=== PATIENT | male | born 1995 | race Caucasian/White ===

== ENCOUNTER 2018-09-05 14:19 | Emergency (ER) | payer SELFPAY ==
[2018-09-05] MEDS ORDERED: predniSONE 20 MG TAB ONE (15:19)
--- NOTE | 2018-09-05 15:22 | RAD REPORT ---
EXAM DESCRIPTION: CT - Head Brain Wo Cont - 09/05/2018 3:16 pm CLINICAL HISTORY: Right-sided facial droop, numbness COMPARISON: None. TECHNIQUE: Axial 5 mm thick images of the head were obtained without IV contrast. All CT scans are performed using dose optimization technique as appropriate and may include automated exposure control or mA/KV adjustment according to patient size. FINDINGS: No intracranial hemorrhage, mass, edema or shift of mid-line structures. No acute infarcti on changes seen. No abnormal extra-axial fluid collections. Ventricles are normal. Patient has normal variant moderate-sized partially calcified choroid plexus cysts. Mastoid air cells and visualized portions of the paranasal sinuses are clear. No acute bony findings. IMPRESSION: Negative CT head examination for acute or significant finding.
--- NOTE | 2018-09-05 15:29 | EDPHYS ---
Physician Documentation [facility] Name: Kostas Collins Age: 23 yrs Sex: Male : 1995 Arrival Date: 09/05/2018 Time: 14:21 Bed 10 Private MD: None, None ED Physician Nii Schmid HPI: 09/05 15:09 This 23 yrs old Male presents to ER via Ambulatory with complaints of Facial jr8 Droop, Facial Numbness. 15:09 Onset: The symptoms/episode began/occurred acutely, 5 day(s) ago. Context: occurred at [facility] home. Associated signs and symptoms: Pertinent positives: paresthesias. Severity of symptoms: At their worst the symptoms were moderate in the emergency department the symptoms are unchanged. Patient's baseline: Neuro: alert and fully oriented, Motor: no deficits, Ambulation: walks without assistance, Speech: normal. Current symptoms: paralysis or paresis, that is moderate. The patient has not experienced similar symptoms in the past. The patient has not recently seen a physician. 15:09 Patient stated that he noticed numbness of tongue and taste difference on right side jr8 about 5 days ago. A couple of days after that noticed facial droop. Came today after it had not gone away . Historical: - Allergies: 14:32 No Known Allergies; ss - Home Meds: 14:32 None [Active]; ss - PMHx: 14:32 None; ss - PSHx: 14:32 None; ss - Immunization history:: Adult Immunizations unknown. - Social history:: Smoking status: Patient uses tobacco products, smokes one pack cigarettes per day. - Ebola Screening: : Patient denies exposure to infectious person Patient denies travel to an Ebola-affected area in the 21 days before illness onset. ROS: 15:09 Eyes: Negative for injury, pain, redness, and discharge, ENT: Negative for injury, jr8 pain, and discharge, Neck: Negative for injury, pain, and swelling, Cardiovascular: Negative for chest pain, palpitations, and edema, Respiratory: Negative for shortness of breath, cough, wheezing, and pleuritic chest pain, Abdomen/GI: Negative for abdominal pain, nausea, vomiting, diarrhea, and constipation, Back: Negative for injury and pain, MS/Extremity: Negative for injury and deformity, Skin: Negative for injury, rash, and discoloration. 15:09 Neuro: Positive for numbness, weakness, of the right face. Exam: 15:09 Head/Face: Normocephalic, atraumatic. Eyes: Pupils equal round and reactive to light, jr8 extra-ocular motions intact. Lids and lashes normal. Conjunctiva and sclera are non-icteric and not injected. Cornea within normal limits. Periorbital areas with no swelling, redness, or edema. ENT: Nares patent. No nasal discharge, no septal abnormalities noted. Tympanic membranes are normal and external auditory canals are clear. Oropharynx with no redness, swelling, or masses, exudates, or evidence of obstruction, uvula midline. Mucous membranes moist. Neck: Trachea midline, no thyromegaly or masses palpated, and no cervical lymphadenopathy. Supple, full range of motion without nuchal rigidity, or vertebral point tenderness. No Meningismus. Cardiovascular: Regular rate and rhythm with a normal S1 and S2. No gallops, murmurs, or rubs. Normal PMI, no JVD. No pulse deficits. Respiratory: Lungs have equal breath sounds bilaterally, clear to auscultation and percussion. No rales, rhonchi or wheezes noted. No increased work of breathing, no retractions or nasal flaring. Abdomen/GI: Soft, non-tender, with normal bowel sounds. No distension or tympany. No guarding or rebound. No evidence of tenderness throughout. Back: No spinal tenderness. No costovertebral tenderness. Full range of motion. Skin: Warm, dry with normal turgor. Normal color with no rashes, no lesions, and no evidence of cellulitis. MS/ Extremity: Pulses equal, no cyanosis. Neurovascular intact. Full, normal range of motion. 15:09 Neuro: Orientation: to person, place, time \T\ situation. Mentation: is normal, Memory: is normal, immediate memory is intact, recent memory is intact, remote memory is intact, Cranial nerves: CN I not tested, CN II- XII are normal as tested, visual marshall are intact. extraocular movements are intact, facial droop noted on right, with forehead involved. decreased ocular muscle tone in the right eye, Nystagmus is absent. Speech is clear and appropriate. Tongue strength is normal, Cerebellar function: normal finger to nose testing, heel to rowe testing is normal, Motor: moves all fours, strength is 5/5 in all extremities, Sensation: no obvious gross deficits, Gait: is steady, seizure activity, is not displayed by the patient, Abnormal movements: there are no abnormal movements. Vital Signs: 14:30 BP 152 / 93; Pulse 75; Resp 16; Temp 98.0; Pulse Ox 100% on R/A; Weight 90.72 kg; Height 6 ft. 1 in. (185.42 cm); Pain 0/10; 14:30 Body Mass Index 26.39 (90.72 kg, 185.42 cm) MDM: 14:42 Patient medically screened. 8 15:23 Data reviewed: vital signs, nurses notes, radiologic studies, CT scan, and as a result, jr8 I will discharge patient. Data interpreted: Pulse oximetry: on room air is 100 %. Interpretation: normal. Counseling: I had a detailed discussion with the patient and/or guardian regarding: the historical points, exam findings, and any diagnostic results supporting the discharge/admit diagnosis, radiology results, the need for outpatient follow up, a neurologist, to return to the emergency department if symptoms worsen or persist or if there are any questions or concerns that arise at home. 09/05 15:00 Order name: CT Head Brain wo Cont; Complete Time: 15:23 jr Administered Medications: 15:30 Drug: predniSONE 60 mg Route: PO; 15:43 Follow up: Response: Medication administered at discharge. Disposition: 09/05/18 15:28 Discharged to Home. Impression: Fuentes's palsy. - Condition is Stable. - Discharge Instructions: Fuentes Palsy, Adult. - Prescriptions for Prednisone 20 mg Oral Tablet - take 3 tablets by ORAL route once daily for 7 days; 21 tablet. - Medication Reconciliation Form, Thank You Letter, Antibiotic Education, Prescription Opioid Use form. - Follow up: Jayro Barry MD; When: 5 - 6 days; Reason: Recheck today's complaints, Continuance of care, Re-evaluation by your physician. - Problem is new. - Symptoms have improved. Addendum: 09/08/2018 08:08 Co-signature as Attending Physician, Nii Schmid MD I agree with the assessment and c schofield plan of care. Signatures: Dispatcher [employer] EDNii Irwin MD MD cha Smirch, Shelby, RN RN ss Javon Downey PA PA jr8 Corrections: (The following items were deleted from the chart) 09/05 15:44 15:28 09/05/2018 15:28 Discharged to Home. Impression: Fuentes's palsy. Condition is ss Stable. Forms are Medication Reconciliation Form, Thank You Letter, Antibiotic Education, Prescription Opioid Use. Follow up: Jayro Barry; When: 5 - 6 days; Reason: Recheck today's complaints, Continuance of care, Re-evaluation by your physician. Problem is new. Symptoms have improved. jr8
--- NOTE | 2018-09-05 15:29 | ER ---
Nurse's Notes [facility] Name: Kostas Collins Age: 23 yrs Sex: Male : 1995 Arrival Date: 09/05/2018 Time: 14:21 Bed 10 Private MD: None, None Diagnosis: Fuentes's palsy Presentation: 09/05 14:31 Presenting complaint: Patient states: R sided facial droop and numbness that began 4-5 ss days ago. Transition of care: patient was not received from another setting of care. No acute neurological deficit is noted. Pre-hospital glucose is not applicable to this patient. Onset of symptoms was August 31, 2018. Risk Assessment: Do you want to hurt yourself or someone else? Patient reports no desire to harm self or others. Initial Sepsis Screen: Does the patient meet any 2 criteria? No. Patient's initial sepsis screen is negative. Does the patient have a suspected source of infection? No. Patient's initial sepsis screen is negative. Care prior to arrival: None. 14:31 Method Of Arrival: Ambulatory ss 14:31 Acuity: EMMA 3 ss Stroke Activation: Symptom onset > 6 hours Physician: Stroke Attending; Name: ; Notified At: ; Arrived At: Physician: Chief Stroke Resident; Name: ; Notified At: ; Arrived At: Physician: Stroke Resident; Name: ; Notified At: ; Arrived At: Physician: ED Attending; Name: ; Notified At: ; Arrived At: Physician: ED Resident; Name: ; Notified At: ; Arrived At: Historical: - Allergies: 14:32 No Known Allergies; ss - Home Meds: 14:32 None [Active]; ss - PMHx: 14:32 None; ss - PSHx: 14:32 None; ss - Immunization history:: Adult Immunizations unknown. - Social history:: Smoking status: Patient uses tobacco products, smokes one pack cigarettes per day. - Ebola Screening: : Patient denies exposure to infectious person Patient denies travel to an Ebola-affected area in the 21 days before illness onset. Screenin:30 Abuse screen: Denies threats or abuse. Denies injuries from another. Nutritional ss screening: No deficits noted. Tuberculosis screening: No symptoms or risk factors identified. Never had TB. Fall Risk None identified. Assessment: 14:30 General: Appears in no apparent distress. comfortable, Behavior is calm, cooperative, ss Denies fever, feeling ill, fatigue, chills. Pain: Denies pain. Neuro: Level of Consciousness is awake, alert, obeys commands, Oriented to person, place, time, situation, Speech is normal, Facial droop on right, Pupils are PERRLA, Reports decreased sensation on R side of face. . Cardiovascular: Capillary refill < 3 seconds is brisk in bilateral fingers. Respiratory: Airway is patent Respiratory effort is even, unlabored, Respiratory pattern is regular, symmetrical. GI: No signs and/or symptoms were reported involving the gastrointestinal system. : No signs and/or symptoms were reported regarding the genitourinary system. EENT: Nares are clear Throat is clear. Derm: Skin is intact, is healthy with good turgor, Skin is dry, Skin is pink, warm \T\ dry. normal. Musculoskeletal: Circulation, motion, and sensation intact. Range of motion: intact in all extremities, Swelling absent. 15:32 Reassessment: Patient and/or family updated on plan of care and expected duration. Pain ss level reassessed. Patient is alert, oriented x 3, equal unlabored respirations, skin warm/dry/pink. Awaiting CT scan results, pt notified of wait time. . Vital Signs: 14:30 BP 152 / 93; Pulse 75; Resp 16; Temp 98.0; Pulse Ox 100% on R/A; Weight 90.72 kg; ss Height 6 ft. 1 in. (185.42 cm); Pain 0/10; 14:30 Body Mass Index 26.39 (90.72 kg, 185.42 cm) ED Course: 14:21 Patient arrived in ED. mr 14:22 None, None is Private Physician. mr 14:30 Arm band placed on right wrist. ss 14:30 Patient has correct armband on for positive identification. Bed in low position. Call ss light in reach. 14:32 Triage completed. ss 14:42 Javon Downey PA is PHCP. jr8 14:42 Nii Schmid MD is Attending Physician. jr8 15:[address] vr 15:16 CT Head Brain wo Cont In Process Unspecified. EDMS 15:24 Jayro Barry MD is Referral Physician. jr8 15:43 Afshan Montero, PASCUAL is Primary Nurse. ss 15:43 No provider procedures requiring assistance completed. Patient did not have IV access ss during this emergency room visit. Administered Medications: 15:30 Drug: predniSONE 60 mg Route: PO; ss 15:43 Follow up: Response: Medication administered at discharge. ss Outcome: 15:28 Discharge ordered by . kristyn 15:43 Discharged to home ambulatory, with family. ss 15:43 Condition: good 15:43 Discharge instructions given to patient, family, Instructed on discharge instructions, follow up and referral plans. medication usage, Demonstrated understanding of instructions, follow-up care, medications, Prescriptions given X 1. 15:44 Patient left the ED. Signatures: Dispatcher [employer] Liyah Casiano Shelby, RN RN Mikala Steele Josh, PA PA jr8
== END 2018-09-05 15:44 | disposition home or self-care (01) ==
LOC: ER 14:19
DX: G51.0 Bell's palsy (principal); F17.210 Nicotine dependence, cigarettes, uncomplicated
CPT/HCPCS: 70450; 99284; J7512